=== PATIENT | female | born 1970 | race Caucasian/White ===

== ENCOUNTER 2017-05-17 09:03 | Emergency (ER) | payer MEDICAID ==
[~2017-05-17] VITALS: Ht 165.1 cm; Wt 81.0 kg
[2017-05-17 09:55] LABS: BASOPHILS # (AUTO) 0.1 X10'3 (0-0.2); BASOPHILS % (AUTO) 0.4 % (0-1); EOSINOPHILS # (AUTO) 0.3 X10'3 (0-0.9); EOSINOPHILS % (AUTO) 2.1 % (0-6); HEMATOCRIT 45.2 % (35.0-45.0); HEMOGLOBIN 15.6 g/dl (12.0-16.0); LYMPHOCYTES # (AUTO) 2.7 X10'3 (1.1-4.8); LYMPHOCYTES % (AUTO) 21.4 % (21-51); MEAN CORPUSCULAR HEMOGLOBIN 32.3 PG (27.0-31.0); MEAN CORPUSCULAR HGB CONC 34.4 % (33.0-36.5); MEAN PLATELET VOLUME 8.3 FL (7.4-10.4); MONOCYTES # (AUTO) 0.6 X10'3 (0-0.9); MONOCYTES % (AUTO) 5.1 % (2-12); NEUTROPHILS # (AUTO) 8.8 X10'3 (1.8-7.7); PLATELET COUNT 281 X10'3 (140-440); RED BLOOD COUNT 4.81 X10'6 (4.20-5.60); RED CELL DISTRIBUTION WIDTH 13.9 % (11.5-14.5); WHITE BLOOD COUNT 12.4 X10'3 (4.5-11.0)
[2017-05-17 10:01] LABS: INR 0.9 INR; PROTHROMBIN TIME 9.7 SECONDS (9.0-12.0)
[2017-05-17 10:06] LABS: ALANINE AMINOTRANSFERASE 20 U/L (12-78); ALBUMIN 3.7 G/DL (3.4-5.0); ALBUMIN/GLOBULIN RATIO 0.9 (1.1-1.5); ALKALINE PHOSPHATASE 75 IU/L (46-116); ANION GAP 11 (8-16); ASPARTATE AMINO TRANSFERASE 13 U/L (10-37); BILIRUBIN,TOTAL 0.5 MG/DL (0.1-1.0); BLOOD UREA NITROGEN 18 MG/DL (7-18); BUN/CREATININE RATIO 19.6 (6.6-38.0); CALCIUM 9.7 MG/DL (8.5-10.1); CHLORIDE 105 MMOL/L (99-107); CREATININE 0.92 MG/DL (0.40-0.90); GLUCOSE 100 MG/DL (70-104); POTASSIUM 4.5 MMOL/L (3.5-5.1); SODIUM 141 MMOL/L (135-145); TOTAL CARBON DIOXIDE 25.3 MMOL/L (24-32); TOTAL PROTEIN 7.8 G/DL (6.4-8.2); eGFR 66 ML/MIN
[2017-05-17 10:38] LABS: CLARITY,URINE SLIGHTLY CLOUDY (Clear); COLOR,URINE YELLOW (Yellow); GLUCOSE, URINE NEGATIVE (Neg); KETONES,URINE 15 mg/dl (Neg); LEUKOCYTE ESTERASE ,URINE NEGATIVE (Neg); NITRITES, URINE POSITIVE (Neg); OCCULT BLOOD,URINE NEGATIVE (Neg); PROTEIN,URINE NEGATIVE (Neg); UROBILINOGEN,URINE 0.2 E.U/dL (0.2-1.0)
[2017-05-17 10:44] LABS: UA COLLECTION TYPE CLN CATCH MIDSTREAM
[2017-05-17 10:45] VITALS: BP 107/65
[2017-05-17 10:55] LABS: BACTERIA,URINE 3+ /HPF (Neg); RBC,URINE NONE SEEN /HPF (0-2); SQUAMOUS EPITHELIAL CELL,UR MODERATE /LPF (FEW); WBC,URINE 0-4 /HPF (0-4)
[2017-05-17 10:56] LABS: MUCUS STRANDS FEW /LPF (Neg)
== END 2017-05-17 10:46 | disposition home or self-care (01) ==
LOC: ER 09:03
DX: R10.11 Right upper quadrant pain (principal)
CPT/HCPCS: 36415; 80053; 81001; 85025; 85610; 87077; 87088; 99284

== ENCOUNTER 2017-05-30 07:58 | Emergency (ER) | payer MEDICAID ==
[~2017-05-30] VITALS: Ht 165.1 cm; Wt 76.8 kg
[2017-05-30 08:11] VITALS: BP 113/75
[2017-05-30 08:40] LABS: BASOPHILS % (AUTO) 0.5 % (0-1); EOSINOPHILS # (AUTO) 0.2 X10'3 (0-0.9); EOSINOPHILS % (AUTO) 3.3 % (0-6); HEMATOCRIT 44.1 % (35.0-45.0); HEMOGLOBIN 15.3 g/dl (12.0-16.0); LYMPHOCYTES # (AUTO) 2.3 X10'3 (1.1-4.8); LYMPHOCYTES % (AUTO) 30.2 % (21-51); MEAN CORPUSCULAR HEMOGLOBIN 32.5 PG (27.0-31.0); MEAN CORPUSCULAR HGB CONC 34.8 % (33.0-36.5); MEAN CORPUSCULAR VOLUME 93.5 FL (78-98); MEAN PLATELET VOLUME 8.7 FL (7.4-10.4); MONOCYTES # (AUTO) 0.6 X10'3 (0-0.9); MONOCYTES % (AUTO) 8.1 % (2-12); NEUTROPHILS # (AUTO) 4.3 X10'3 (1.8-7.7); NEUTROPHILS % (AUTO) 57.9 % (42-75); PLATELET COUNT 273 X10'3 (140-440); RED BLOOD COUNT 4.71 X10'6 (4.20-5.60); RED CELL DISTRIBUTION WIDTH 13.6 % (11.5-14.5); WHITE BLOOD COUNT 7.5 X10'3 (4.5-11.0)
[2017-05-30 08:48] LABS: PROTHROMBIN TIME 10.1 SECONDS (9.0-12.0)
[2017-05-30 09:01] LABS: ALANINE AMINOTRANSFERASE 61 U/L (12-78); ALBUMIN/GLOBULIN RATIO 1.1 (1.1-1.5); ALKALINE PHOSPHATASE 82 IU/L (46-116); AMYLASE 23 U/L (25-115); ANION GAP 11 (8-16); ASPARTATE AMINO TRANSFERASE 34 U/L (10-37); BILIRUBIN,TOTAL 0.9 MG/DL (0.1-1.0); BLOOD UREA NITROGEN 11 MG/DL (7-18); BUN/CREATININE RATIO 12.5 (6.6-38.0); CALCIUM 9.7 MG/DL (8.5-10.1); CHLORIDE 102 MMOL/L (99-107); CREATININE 0.88 MG/DL (0.40-0.90); GLUCOSE 97 MG/DL (70-104); LIPASE 66 U/L (73-393); POTASSIUM 4.1 MMOL/L (3.5-5.1); SODIUM 140 MMOL/L (135-145); TOTAL PROTEIN 7.8 G/DL (6.4-8.2); eGFR 69 ML/MIN
[2017-05-30] MEDS ORDERED: ONDA8TAB13 PO (09:08)
[2017-05-30] MEDS ORDERED: PANT-47 PO (09:08)
[2017-05-30] MEDS ORDERED: pantoprazole 40mg Tablet.DR PO ONE (09:10)
== END 2017-05-30 10:18 | disposition home or self-care (01) ==
LOC: ER 07:59
DX: K80.20 Calculus of gallbladder without cholecystitis without obstruction (principal); R10.11 Right upper quadrant pain; F17.200 Nicotine dependence, unspecified, uncomplicated; Z79.899 Other long term (current) drug therapy
CPT/HCPCS: 36415; 76700; 80053; 82150; 83690; 85025; 85610; 93005; 99285

== ENCOUNTER 2017-06-15 23:42 | Inpatient (IN) | payer MEDICAID ==
[~2017-06-15] VITALS: Ht 165.1 cm; Wt 75.5 kg
[~2017-06-15 23:42] MED LIST: ONDA8TAB13 PO; PANT-47 PO
[2017-06-16] MEDS ORDERED: morphine 4 MG/ML inj SYRINge IV ONE (00:15)
[2017-06-16] MEDS ORDERED: ondansetron 4mg rapidly disintigrating tab PO ONE (00:15)
[2017-06-16] MEDS ORDERED: ondansetron/PF 4mg/2ml inj IV ONE (00:15)
[2017-06-16] MEDS ORDERED: normal saline 1000ml 1,000 ML IV ONE ×2 (00:15→09:00)
[2017-06-16] MEDS ORDERED: POLY17PO10 PO (00:39)
[2017-06-16] MEDS ORDERED: [UNRECOGNIZED DRUG - CODE] (00:39)
[2017-06-16 00:43] LABS: BASOPHILS # (AUTO) 0.1 X10'3 (0-0.2); BASOPHILS % (AUTO) 0.8 % (0-1); EOSINOPHILS # (AUTO) 0.3 X10'3 (0-0.9); EOSINOPHILS % (AUTO) 2.6 % (0-6); HEMATOCRIT 44.9 % (35.0-45.0); HEMOGLOBIN 15.1 g/dl (12.0-16.0); LYMPHOCYTES # (AUTO) 3.1 X10'3 (1.1-4.8); LYMPHOCYTES % (AUTO) 26.5 % (21-51); MEAN CORPUSCULAR HGB CONC 33.6 % (33.0-36.5); MEAN CORPUSCULAR VOLUME 95.2 FL (78-98); MEAN PLATELET VOLUME 9.5 FL (7.4-10.4); MONOCYTES % (AUTO) 8.6 % (2-12); NEUTROPHILS # (AUTO) 7.2 X10'3 (1.8-7.7); NEUTROPHILS % (AUTO) 61.5 % (42-75); PLATELET COUNT 268 X10'3 (140-440); RED BLOOD COUNT 4.71 X10'6 (4.20-5.60); WHITE BLOOD COUNT 11.7 X10'3 (4.5-11.0)
[2017-06-16] MEDS ORDERED: iohexol 300mg/ml 100ml inj. ONE (00:55)
[2017-06-16 00:59] LABS: ALANINE AMINOTRANSFERASE 319 U/L (12-78); ALBUMIN 3.7 G/DL (3.4-5.0); ALBUMIN/GLOBULIN RATIO 1.1 (1.1-1.5); ALKALINE PHOSPHATASE 256 IU/L (46-116); ANION GAP 11 (8-16); ASPARTATE AMINO TRANSFERASE 384 U/L (10-37); BILIRUBIN,TOTAL 1.6 MG/DL (0.1-1.0); BLOOD UREA NITROGEN 13 MG/DL (7-18); BUN/CREATININE RATIO 13.3 (6.6-38.0); CALCIUM 9.3 MG/DL (8.5-10.1); CHLORIDE 104 MMOL/L (99-107); CREATININE 0.98 MG/DL (0.40-0.90); GLUCOSE 114 MG/DL (70-104); POTASSIUM 3.3 MMOL/L (3.5-5.1); SODIUM 142 MMOL/L (135-145); TOTAL CARBON DIOXIDE 26.8 MMOL/L (24-32); TOTAL PROTEIN 7.2 G/DL (6.4-8.2); eGFR 61 ML/MIN
[2017-06-16 02:38] LABS: CLARITY,URINE SLIGHTLY CLOUDY (Clear); GLUCOSE, URINE NEGATIVE (Neg); KETONES,URINE NEGATIVE (Neg); LEUKOCYTE ESTERASE ,URINE NEGATIVE (Neg); NITRITES, URINE POSITIVE (Neg); OCCULT BLOOD,URINE LARGE (Neg); PH,URINE 6.5 (4.8-8.0); PROTEIN,URINE NEGATIVE (Neg)
[2017-06-16 02:42] LABS: COLOR,URINE DARK YELLOW (Yellow); UA COLLECTION TYPE CLN CATCH MIDSTREAM; URINE AMPHETAMINE SCREEN NEGATIVE (Neg); URINE BARBITUATE SCREEN NEGATIVE (Neg); URINE BENZODIAZEPINES SCREEN NEGATIVE (Neg); URINE CANNABINOID SCREEN POSITIVE (Neg); URINE COCAINE SCREEN NEGATIVE (Neg); URINE METHADONE SCREEN NEGATIVE (Neg); URINE OPIATE SCREEN NEGATIVE (Neg); URINE PHENCYCLIDINE SCREEN NEGATIVE (Neg)
[2017-06-16 02:55] LABS: LIPASE > 30000 U/L (73-393)
[2017-06-16] MEDS ORDERED: piperacillin/tazo 3.375gm/50ml 50 ML IV STA (03:13)
[2017-06-16 03:19] LABS: BACTERIA,URINE 3+ /HPF (Neg); MUCUS STRANDS MODERATE /LPF (Neg); RBC,URINE 0-2 /HPF (0-2); SQUAMOUS EPITHELIAL CELL,UR FEW /LPF (FEW); WBC,URINE 0-4 /HPF (0-4)
[2017-06-16] MEDS ORDERED: normal saline 1000ml 1,000 ML IVB ONE (03:39)
[2017-06-16] MEDS ORDERED: HYDROcodone/acetaminophen 10/325mg tab PO PRN (03:40)
[2017-06-16] MEDS ORDERED: diphenhydrAMINE 50 mg/ml inj IV PRN (03:40)
[2017-06-16] MEDS ORDERED: mag hydrox/Alum hydrox/simeth 30ml oral suspension PO PRN (03:40)
[2017-06-16] MEDS ORDERED: acetaminophen 650mg rectal suppository RC PRN (03:40)
[2017-06-16] MEDS ORDERED: magnesium hydroxide 30ml (MOM) UD suspension PO PRN (03:40)
[2017-06-16] MEDS ORDERED: potassium Cl 20 mEq SR tablet PO PRN (03:40)
[2017-06-16] MEDS ORDERED: ondansetron/PF 4mg/2ml inj IV PRN (03:40)
[2017-06-16] MEDS ORDERED: metoclopramide 5 mg/ml inj IV PRN (03:40)
[2017-06-16] MEDS ORDERED: HYDROcodone/acetaminophen 5mg/325mg tablet PO PRN (03:40)
[2017-06-16] MEDS ORDERED: acetaminophen 325mg tablet PO PRN (03:40)
[2017-06-16] MEDS ORDERED: diphenhydrAMINE 25mg capsule PO PRN (03:40)
[2017-06-16] MEDS ORDERED: potassium Cl 40MEQ/NS 500ml 500 ML IV PRN ×2 (03:40)
[2017-06-16] MEDS ORDERED: bisacodyl 10mg suppository rectal RC PRN (03:40)
[2017-06-16] MEDS ORDERED: HYDROmorphone inj. 0.5 MG/0.5 ML DISP.SYRIN IV PRN ×2 (03:40)
[2017-06-16] MEDS ORDERED: morphine 4 MG/ML inj SYRINge IV PRN ×2 (03:40)
[2017-06-16 04:15] LABS: HEMOGLOBIN A1C 5.6 % (4.5-6.2)
[2017-06-16 04:28] LABS: PARTIAL THROMBOPLASTIN TIME 23 SECONDS (22-32)
[2017-06-16 04:37] LABS: ETHANOL < 0.010 GM/DL (0.0-0.010); MAGNESIUM 2.2 MG/DL (1.5-2.4); PHOSPHORUS 3.4 MG/DL (2.3-4.5)
[2017-06-16] MEDS: normal saline 1000ml 1,000 ML IV SCH ×3 (04:46→23:39)
[2017-06-16] MEDS: potassium Cl 20 mEq SR tablet PO PRN ×3 (04:54→17:41)
[2017-06-16 06:55] VITALS: BP 85/40
[2017-06-16] MEDS: lactobacillus rhamnosus 10,000 MMU CELLS/CAPSULE PO SCH ×2 (07:43→20:17)
[2017-06-16] MEDS: pantoprazole 40 MG vial IV SCH ×2 (07:43→20:17)
[2017-06-16] MEDS: K and/or MAG REPLACEMENT MC SCH (08:00)
[2017-06-16] MEDS: docusate sod 100mg capsule PO SCH ×2 (08:00→20:17)
[2017-06-16] MEDS ORDERED: piperacillin/tazo 3.375gm/50ml 50 ML IV SCH (08:00)
[2017-06-16 11:00] VITALS: BP 97/47
[2017-06-16] MEDS ORDERED: NO HOME MEDS (14:31)
[2017-06-16 15:00] VITALS: BP 100/51
[2017-06-16] MEDS: piperacillin/tazo 3.375gm/50ml 50 ML IV SCH ×2 (15:21→20:16)
[2017-06-16 18:00] VITALS: BP 96/42
[2017-06-16] MEDS: acetaminophen 325mg tablet PO PRN (20:38)
[2017-06-16] MEDS ORDERED: temazepam 15mg capsule PO PRN (21:00)
[2017-06-16 23:00] VITALS: BP 100/39
[2017-06-17] VITALS (24 sets, daily range): BP systolic 84–108; BP diastolic 37–70
[2017-06-17] MEDS: normal saline 1000ml 1,000 ML IV SCH (02:03)
[2017-06-17] MEDS: piperacillin/tazo 3.375gm/50ml 50 ML IV SCH ×4 (02:03→21:39)
[2017-06-17 05:17] LABS: BASOPHILS % (AUTO) 0.8 % (0-1); EOSINOPHILS # (AUTO) 0.2 X10'3 (0-0.9); EOSINOPHILS % (AUTO) 3.9 % (0-6); HEMATOCRIT 35.5 % (35.0-45.0); HEMOGLOBIN 11.8 g/dl (12.0-16.0); LYMPHOCYTES # (AUTO) 2.5 X10'3 (1.1-4.8); LYMPHOCYTES % (AUTO) 42.2 % (21-51); MEAN CORPUSCULAR HEMOGLOBIN 31.9 PG (27.0-31.0); MEAN CORPUSCULAR HGB CONC 33.3 % (33.0-36.5); MEAN CORPUSCULAR VOLUME 95.8 FL (78-98); MEAN PLATELET VOLUME 9.3 FL (7.4-10.4); MONOCYTES # (AUTO) 0.5 X10'3 (0-0.9); MONOCYTES % (AUTO) 8.7 % (2-12); NEUTROPHILS # (AUTO) 2.6 X10'3 (1.8-7.7); NEUTROPHILS % (AUTO) 44.4 % (42-75); PLATELET COUNT 184 X10'3 (140-440); WHITE BLOOD COUNT 5.9 X10'3 (4.5-11.0)
[2017-06-17 05:53] LABS: ALANINE AMINOTRANSFERASE 233 U/L (12-78); ALBUMIN 2.8 G/DL (3.4-5.0); ALKALINE PHOSPHATASE 159 IU/L (46-116); ANION GAP 12 (8-16); ASPARTATE AMINO TRANSFERASE 101 U/L (10-37); BILIRUBIN,TOTAL 1.1 MG/DL (0.1-1.0); BLOOD UREA NITROGEN 8 MG/DL (7-18); BUN/CREATININE RATIO 8.7 (6.6-38.0); CALCIUM 8.4 MG/DL (8.5-10.1); CHLORIDE 109 MMOL/L (99-107); CHOL/HDL RATIO 4.1 (0.00-4.99); CHOLESTEROL 140 MG/DL (0-200); CREATININE 0.92 MG/DL (0.40-0.90); GLUCOSE 74 MG/DL (70-104); HDL CHOLESTEROL 34 MG/DL (35-60); LDL CHOLESTEROL 90 MG/DL (50-100); LIPASE 209 U/L (73-393); POTASSIUM 4.1 MMOL/L (3.5-5.1); SODIUM 144 MMOL/L (135-145); TOTAL CARBON DIOXIDE 22.9 MMOL/L (24-32); TOTAL PROTEIN 5.6 G/DL (6.4-8.2); TRIGLYCERIDES 85 MG/DL (20-135); eGFR 66 ML/MIN
[2017-06-17] MEDS: K and/or MAG REPLACEMENT MC SCH (08:00)
[2017-06-17] MEDS: lactobacillus rhamnosus 10,000 MMU CELLS/CAPSULE PO SCH ×2 (08:38→21:39)
[2017-06-17] MEDS: pantoprazole 40 MG vial IV SCH ×2 (08:38→21:39)
[2017-06-17] MEDS: acetaminophen 325mg tablet PO PRN ×2 (08:38→21:56)
[2017-06-17] MEDS: docusate sod 100mg capsule PO SCH ×2 (08:38→21:39)
[2017-06-17] MEDS ORDERED: BUPIVAcaine/PF 2.5 mg/ml (0.25%) 30ml vial ONE (16:20)
[2017-06-17] MEDS ORDERED: ceFAZolin 1000mg inj ONE (16:20)
[2017-06-17] MEDS ORDERED: desflurane 240ml liquid inh. IH ONE (16:24)
[2017-06-17] MEDS ORDERED: ringers solution, lacted 1,000 ML IV SCH (16:27)
[2017-06-17] MEDS ORDERED: morphine 4 MG/ML inj SYRINge IV PRN ×2 (16:30)
[2017-06-17] MEDS ORDERED: meperidine/PF 25mg/ml syringe IV PRN ×3 (16:30)
[2017-06-17] MEDS ORDERED: acetaminophen 1,000mg/100ml IV 100 ML IV PRN (16:30)
[2017-06-17] MEDS ORDERED: ondansetron/PF 4mg/2ml inj IV PRN (16:30)
[2017-06-17] MEDS ORDERED: proCHLORperazine 10 MG/2 ml inj IV PRN (16:30)
[2017-06-17] MEDS ORDERED: ketorolac trometh. 30mg/ml inj. IV ONE (16:30)
[2017-06-17] MEDS ORDERED: midazolam 2 mg/2 ml injection ONE (16:44)
[2017-06-17] MEDS ORDERED: morphine 10mg/ml inj. ONE (17:28)
[2017-06-17] MEDS ORDERED: fentaNYL/PF 50MCG/1 ML 2ML syringe ONE (17:28)
[2017-06-17] MEDS ORDERED: ondansetron/PF 4mg/2ml inj ONE (17:32)
[2017-06-17] MEDS ORDERED: propofol inj 20 ML IV ONE (17:32)
[2017-06-17] MEDS ORDERED: dexamethasone sod phosphate 4mg/ml inj. ONE (17:32)
[2017-06-18] MEDS: piperacillin/tazo 3.375gm/50ml 50 ML IV SCH ×2 (02:33→07:48)
[2017-06-18] MEDS: normal saline 1000ml 1,000 ML IV SCH ×2 (02:33→05:39)
[2017-06-18 04:13] VITALS: BP 97/55
[2017-06-18 05:10] LABS: BASOPHILS % (AUTO) 0.1 % (0-1); EOSINOPHILS # (AUTO) 0.2 X10'3 (0-0.9); EOSINOPHILS % (AUTO) 1.6 % (0-6); HEMOGLOBIN 12.4 g/dl (12.0-16.0); LYMPHOCYTES # (AUTO) 0.9 X10'3 (1.1-4.8); LYMPHOCYTES % (AUTO) 8.6 % (21-51); MEAN CORPUSCULAR HEMOGLOBIN 32.2 PG (27.0-31.0); MEAN CORPUSCULAR HGB CONC 33.5 % (33.0-36.5); MEAN PLATELET VOLUME 10.1 FL (7.4-10.4); MONOCYTES # (AUTO) 0.2 X10'3 (0-0.9); MONOCYTES % (AUTO) 1.7 % (2-12); NEUTROPHILS # (AUTO) 9.3 X10'3 (1.8-7.7); PLATELET COUNT 204 X10'3 (140-440); RED BLOOD COUNT 3.85 X10'6 (4.20-5.60); RED CELL DISTRIBUTION WIDTH 13.6 % (11.5-14.5); WHITE BLOOD COUNT 10.6 X10'3 (4.5-11.0)
[2017-06-18 05:45] LABS: ALANINE AMINOTRANSFERASE 194 U/L (12-78); ALBUMIN 3.2 G/DL (3.4-5.0); ALKALINE PHOSPHATASE 155 IU/L (46-116); ANION GAP 15 (8-16); ASPARTATE AMINO TRANSFERASE 59 U/L (10-37); BILIRUBIN,TOTAL 1.1 MG/DL (0.1-1.0); BLOOD UREA NITROGEN 12 MG/DL (7-18); BUN/CREATININE RATIO 11.7 (6.6-38.0); CALCIUM 8.6 MG/DL (8.5-10.1); CHLORIDE 102 MMOL/L (99-107); CREATININE 1.03 MG/DL (0.40-0.90); GLUCOSE 120 MG/DL (70-104); POTASSIUM 4.3 MMOL/L (3.5-5.1); SODIUM 136 MMOL/L (135-145); TOTAL CARBON DIOXIDE 18.8 MMOL/L (24-32); TOTAL PROTEIN 6.3 G/DL (6.4-8.2); eGFR 58 ML/MIN
[2017-06-18] MEDS: K and/or MAG REPLACEMENT MC SCH (06:55)
[2017-06-18 07:00] VITALS: BP 88/45
[2017-06-18] MEDS: lactobacillus rhamnosus 10,000 MMU CELLS/CAPSULE PO SCH (07:47)
[2017-06-18] MEDS: acetaminophen 325mg tablet PO PRN (07:47)
[2017-06-18] MEDS: docusate sod 100mg capsule PO SCH (07:48)
[2017-06-18] MEDS: pantoprazole 40 MG vial IV SCH (07:48)
[2017-06-18] MEDS ORDERED: AMOX-419 PO (10:26)
[2017-06-18] MEDS ORDERED: LACT1CAP26 PO (10:26)
[2017-06-18 11:22] VITALS: BP 102/60
== END 2017-06-18 15:18 | disposition home or self-care (01) | DRG 263 ==
LOC: ER 23:43 → ED HOLD 06-16 03:39 → PCU 3S 06-16 05:50 → SUR 3N 06-17 19:01
PROVIDERS: ADMIT Family Medicine; ATTEND Family Medicine
PROC: BW211ZZ Computerized Tomography (CT Scan) of Abdomen and Pelvis using Low Osmolar Contrast (ICD-10-PCS; 2017-06-16)
PROC: 0FT44ZZ Resection of Gallbladder, Percutaneous Endoscopic Approach (ICD-10-PCS; principal; 2017-06-17 16:24)
DX: K85.10 Biliary acute pancreatitis without necrosis or infection (principal); K80.63 Calculus of gallbladder and bile duct with acute cholecystitis with obstruction; N39.0 Urinary tract infection, site not specified; E87.6 Hypokalemia; E86.0 Dehydration; G62.9 Polyneuropathy, unspecified; F12.10 Cannabis abuse, uncomplicated; B96.20 Unspecified Escherichia coli [E. coli] as the cause of diseases classified elsewhere
CPT/HCPCS: 36415; 74177; 74181; 76700; 80053; 80061; 80305; 80320; 81001; 83036; 83605; 83690; 83735; 83880; 84100; 84145; 84443; 85025; 85610; 85730; 87040; 87070; 87077; 87088; 87186; 96365; 96375; 99285; A7000; C9113; J0131; J0690; J0780; J1100; J1885; J2250; J2270; J2405; J2543; J2704; J3010; J3490; J7030; J7120; Q9967